=== PATIENT | male | born 1970 | race Caucasian/White ===

== ENCOUNTER 2022-05-02 07:06 | Outpatient (CLI) | payer OTHER, SELFPAY | END 2022-05-02 07:07 | disposition home or self-care (01) | PROVIDERS: PCP Family Medicine; Visit Provider Surgery | DX: Z12.11 Encounter for screening for malignant neoplasm of colon (principal); K63.5 Polyp of colon; Z80.0 Family history of malignant neoplasm of digestive organs | CPT/HCPCS: 45385; 88305; 99153; J1200; J2250; J3010 ==

== ENCOUNTER 2023-07-01 08:16 | Outpatient (CLI) | payer OTHER, SELFPAY | END 2023-07-01 08:17 | disposition home or self-care (01) | PROVIDERS: PCP Family Medicine; Visit Provider Family Medicine | DX: Z13.1 Encounter for screening for diabetes mellitus (principal); Z12.5 Encounter for screening for malignant neoplasm of prostate | CPT/HCPCS: 80048; G0103 ==